=== PATIENT | female | born 1950 | race Caucasian/White ===

== ENCOUNTER 2018-01-15 08:38 | Inpatient (IN) | payer OTHER ==
[~2018-01-15] VITALS: Ht 154.9 cm; Wt 56.9 kg
[2018-01-15 08:42] VITALS: Ht 154.9 cm; Wt 56.9 kg
[2018-01-15 09:09] LABS: BASOPHIL % 0.4 % (0-2)
[2018-01-15 09:12] LABS: CALCIUM 8.9 mg/dL (8.5-10.1); CARBON DIOXIDE 24.6 mmol/L (21-32); CHLORIDE SERUM 101 mmol/L (98-107); CREATININE SERUM 0.9 mg/dL (0.6-1.0); GFR1 > 60 mL/min; GLUCOSE SERUM 91 mg/dL (74-106); POTASSIUM SERUM 3.4 mmol/L (3.5-5.1); SODIUM SERUM 136 mmol/L (136-145)
[2018-01-15 09:15] LABS: UA SPECIFIC GRAVITY >=1.030 (1.005-1.035); microscopic required? YES; urine erythrocyte NEGATIVE (NEGATIVE)
[2018-01-15 09:15] LABS: PLATELET COUNT 426 x10^3mcL (130-400)
[2018-01-15 09:17] LABS: ALKALINE PHOSPHATASE 101 U/L (46-116); ALT/SGPT 10 U/L (14-59); AMYLASE 26 U/L (25-115); AST/SGOT 12 U/L (15-37); BILIRUBIN TOTAL 0.3 mg/dL (0.20-1.00); LIPASE 93 IU/L (73-393); TOTAL PROTEIN, SERUM 8.3 g/dL (6.4-8.2)
[2018-01-15 12:04] VITALS: BP 99/79
[2018-01-15 13:05] VITALS: BP 131/86
[2018-01-15 17:04] VITALS: BP 98/55
[2018-01-15 22:37] VITALS: BP 90/48
[2018-01-16 05:12] VITALS: BP 92/54
[2018-01-16 07:16] LABS: CALCIUM 7.9 mg/dL (8.5-10.1); CARBON DIOXIDE 22.3 mmol/L (21-32); CHLORIDE SERUM 113 mmol/L (98-107); CREATININE SERUM 0.7 mg/dL (0.6-1.0); GFR1 > 60 mL/min; GLUCOSE SERUM 97 mg/dL (74-106); POTASSIUM SERUM 4.7 mmol/L (3.5-5.1); SODIUM SERUM 144 mmol/L (136-145)
[2018-01-16 17:00] VITALS: BP 100/56
[2018-01-16 21:02] VITALS: BP 97/61
[2018-01-17 04:52] VITALS: BP 95/54
[2018-01-17 07:00] LABS: CARBON DIOXIDE 20.7 mmol/L (21-32); CHLORIDE SERUM 108 mmol/L (98-107); CREATININE SERUM 0.7 mg/dL (0.6-1.0); GFR1 > 60 mL/min; GLUCOSE SERUM 81 mg/dL (74-106); POTASSIUM SERUM 3.4 mmol/L (3.5-5.1); SODIUM SERUM 140 mmol/L (136-145)
[2018-01-17 07:27] LABS: BASOPHIL % 0.3 % (0-2); PLATELET COUNT 306 x10^3mcL (130-400)
[2018-01-17 07:29] LABS: RED CELL DISTRIBUTION WIDTH 17.4 % (11.5-14.5)
[2018-01-17 10:15] VITALS: BP 97/61
[2018-01-17 13:12] VITALS: BP 97/61
[2018-01-17 17:19] VITALS: BP 106/64
== END 2018-01-17 17:48 | disposition short-term general hospital (02) | DRG 375 ==
LOC: ED 08:38 → MU 10:31
PROVIDERS: Internal Medicine; Specialist
PROC: 0DBF8ZX Excision of Right Large Intestine, Via Natural or Artificial Opening Endoscopic, Diagnostic (ICD-10-PCS; 2018-01-16)
PROC: 0DBM8ZZ Excision of Descending Colon, Via Natural or Artificial Opening Endoscopic (ICD-10-PCS; principal; 2018-01-16 10:30)
PROC: 0DBL8ZZ Excision of Transverse Colon, Via Natural or Artificial Opening Endoscopic (ICD-10-PCS; 2018-01-16 10:30)
DX: C18.2 Malignant neoplasm of ascending colon (principal); E44.1 Mild protein-calorie malnutrition; D50.9 Iron deficiency anemia, unspecified; D12.3 Benign neoplasm of transverse colon; D12.4 Benign neoplasm of descending colon; K64.4 Residual hemorrhoidal skin tags; E87.6 Hypokalemia
CPT/HCPCS: 45378; J1200; J1610; J1885; J1956; J2250; J2310; J2405; J2930; J3010; J3490; J7042; Q0092

== ENCOUNTER 2019-04-11 17:33 | Emergency (ER) | payer OTHER ==
[~2019-04-11] VITALS: Ht 160 cm; Wt 62.1 kg
[2019-04-11 18:45] LABS: BASOPHIL % 0.2 % (0-2); PLATELET COUNT 176 x10^3mcL (130-400)
[2019-04-11 19:10] LABS: CALCIUM 8.3 mg/dL (8.5-10.1); CARBON DIOXIDE 28.4 mmol/L (21-32); CHLORIDE SERUM 104 mmol/L (98-107); CREATININE SERUM 0.8 mg/dL (0.6-1.0); GFR1 > 60 mL/min; GLUCOSE SERUM 99 mg/dL (74-106); POTASSIUM SERUM 3.9 mmol/L (3.5-5.1); SODIUM SERUM 141 mmol/L (136-145)
[2019-04-11 19:14] LABS: ALKALINE PHOSPHATASE 91 U/L (46-116); ALT/SGPT 42 U/L (14-59); AST/SGOT 26 U/L (15-37); BILIRUBIN TOTAL 0.2 mg/dL (0.20-1.00); TOTAL PROTEIN, SERUM 7.9 g/dL (6.4-8.2)
[2019-04-11 19:16] LABS: ALBUMIN 3.3 g/dL (3.4-5.0)
[2019-04-11 22:10] VITALS: BP 103/58
== END 2019-04-11 22:10 | disposition home or self-care (01) ==
LOC: ED 17:33
PROVIDERS: Emergency Medicine
DX: J10.1 Influenza due to other identified influenza virus with other respiratory manifestations (principal)
CPT/HCPCS: 87804; J2405; J7030

== ENCOUNTER 2020-03-03 20:21 | Emergency (ER) | payer OTHER, SELFPAY ==
[~2020-03-03] VITALS: Ht 157.5 cm; Wt 65.8 kg
[2020-03-03 20:24] VITALS: Ht 157.5 cm; Wt 65.8 kg
[2020-03-03 21:27] VITALS: BP 139/90
== END 2020-03-03 21:27 | disposition home or self-care (01) ==
LOC: ED 20:21
DX: U07.1 COVID-19 (principal); B34.9 Viral infection, unspecified; Z98.890 Other specified postprocedural states
CPT/HCPCS: Q0162; U0003